=== PATIENT | female | born 1970 | race Caucasian/White ===

== ENCOUNTER 2024-12-02 10:40 | Outpatient (REF) | payer MEDICAID, SELFPAY ==
--- OUTSIDE RECORDS SUMMARY | 2024-12-02 10:00 | XMS_ITS | Encounter Summary ---
Author Organization [employer] Address [address] [facility] 7[address] [place] [address] Care Team Providers Care Staff Veterinarian Name Role Phone Levar Chambers MD Primary Care Provider [phone] Reason for Referral * Imaging (Routine) - Authorized Specialty Diagnoses / Procedures Referred By Contac t Referred To Contact Radiology Diagnoses Breast mass in female Procedures BI US Breast Complete Right Hillary Umana MD [address] [place] [address] Phone: tel: fax: [facility] Referral ID Status Reason Start Date Expiration Date V isits Requested Visits Authorized [id number] Authorized 12/02/2024 12/02/2025 1 1 * Imaging (Routine) - Authorized Specialty Diagnoses / Procedures Referred By Contac t Referred To Contact Radiology Diagnoses Breast mass in female Procedures BI Mammogram Diagnostic Tomosynthesis Bilateral Hillary Umana MD [address] [place] [address] Phone: tel: fax: [facility] Referral ID Status Reason Start Date Expiration Date V isits Requested Visits Authorized [id number] Authorized 12/02/2024 12/02/2025 1 1 Reason for Visit * Reason Comments Cervical Cancer Screening Encounter Details Date Type Department Care Team (Latest Contact Info) Description 12/02/2024 10:00 AM EDT Procedure Visit [facility] P[facility] [address] [place] [address] Hillary Umana MD [address] [place] [address] Exposure to sexually transmitted disease (STD) (Primary Dx); Screening for colon cancer; Breast mass in female; Cervical cancer screening Social History Tobacco Use Types Packs/Day Years Used Date Smoking Tobacco: Never Passive Smoke Exposure: Never Smokeless Tobacco: Never Depression Answer Date Recorded Patient Health Questionnaire-9 Score 6 11/27/2024 Patient Health Questionnaire-9 Score 6 11/27/2024 Last PHQ-9: Questionnaire Data Not on file 1 Depression Answer Date Recorded Patient Health Questionnaire-2 Score 2 11/27/2024 Comments No Sex and Gender Information Value Date Recorded Sex Assigned at Female 09/25/2024 1:09 PM EDT Legal Sex Female 1:06 PM EDT Gender Identity Female 09/25/2024 1:09 PM EDT Sexual Orientation Straight 09/25/2024 1: 09 PM EDT documented as of this encounter Last Filed Vital Signs Vital Sign Reading Time Taken Comments Blood Pressure 139/82 12/02/2024 10:14 AM EDT Pulse 80 12/02/2024 10:14 AM EDT Temperature 36.8 C (98.2 F) 12/02/2024 10:14 AM EDT Respiratory Rate 20 12/02/2024 10:14 AM EDT Oxygen Saturation 98% 12/02/2024 10:14 AM EDT Inhaled Oxygen Concentration - - Weight 103 kg (227 lb 9.6 oz) 12/02/2024 10:14 A M EDT Height 165.1 cm (5' 5 ) 12/02/2024 10:14 AM EDT Body Mass Index 37.87 12/02/2024 10:14 AM EDT documented in this encounter Progress Notes * Hillary Umana MD - 12/02/2024 10:00 AM EDT Subjective Patient ID: Audelia Stanford is a 53 y.o. female who presents for Cervical Cancer Screening. 53 y.o. female here for annual well woman preventive exam. LMP: No LMP recorded. Patient has had an ablation. Sexual activity: Social History Substance and Sexual Activity Sexual activity: Yes Partners: Male control/protection: Condom Male intention: BC method: Smoking hx: Tobacco Use: Low Risk (12/02/2024) Tobacco Smoking Tobacco Use: Never Smokeless Tobacco Use: Never Passive Exposure: Never Alcohol use hx: Social History Substance and Sexual Activity Alcohol use: None OBHx: # 1 - Date: None, Sex: None, Weight: None, GA: None, Type: None, Apgar1: None, Apgar5: None, Living: None, Comments: None # 2 - Date: None, Sex: None, Weight: None, GA: None, Type: None, Apgar1: None, Apgar5: None, Living: None, Comments: None IPV: Denies IPV Reviewed family hx Review of patient's family history indicates: Problem: Ovarian cancer Relation: Mother Name: Age of Onset: (Not Specified) Problem: Diabetes Relation: Father Name: Age of Onset: (Not Specified) Problem: Coronary artery disease Relation: Father Name: Age of Onset: (Not Specified) Problem: Asperger's syndrome Relation: Son Name: Age of Onset: (Not Specified) Problem: Autism spectrum disorder Relation: Son Name: Age of Onset: (Not Specified) Problem: Liver cancer Relation: Mother's Sister Name: Age of Onset: (Not Specified) Problem: Hypertension Relation: Mother's Sister Name: Age of Onset: (Not Specified) Problem: Lung cancer Relation: Mother's Sister Name: Age of Onset: (Not Specified) Problem: Solid Tumor Relation: Mother's Sister Name: Age of Onset: (Not Specified) Problem: Breast cancer Relation: Mother's Sister Name: Age of Onset: (Not Specified) Health Maintenance: No results found for: HMPAP , HMMAMMO , HMCOLON Review of Systems Objective BP 139/82 Pulse 80 Temp 98.2 ??F (36.8 ??C) (Oral) Resp 20 Ht 5' 5 (1.651 m) Wt 227 lb 9.6 oz (103 kg) SpO2 98% BMI 37.87 kg/m?? Physical Exam Vitals reviewed. Exam conducted with a business process associate present. HENT: Head: Normocephalic and atraumatic. Pulmonary: Effort: Pulmonary effort is normal. Chest: Chest wall: No deformity, tenderness or crepitus. Breasts: Breasts are symmetrical. Right: Normal. No inverted nipple, mass, nipple discharge, skin change or tenderness. Left: Normal. No inverted nipple, mass, nipple discharge, skin change or tenderness. Genitourinary: Urethra: No prolapse. Vagina: Normal. Cervix: Normal. Rectum: Normal. Musculoskeletal: Cervical back: Normal range of motion. Lymphadenopathy: Upper Body: Right upper body: No supraclavicular, axillary or pectoral adenopathy. Left upper body: No supraclavicular, axillary or pectoral adenopathy. Psychiatric: Mood and Affect: Mood is anxious. Speech: Speech is rapid and pressured and tangential. Assessment/Plan Problem List Items Addressed This Visit Breast mass in female Reports history of chronic right sided cysts, will send for imaging. Records pending. R breast 6 o'clock 2.5 cm x 1.0 cm, mobile, no skin changes Imaging order following CRICO guidelines Relevant Orders BI Mammogram Diagnostic Tomosynthesis Bilateral BI US Breast Complete Right Cervical cancer screening 53 y.o. here for cervical cancer screening. Will continue monitoring following ASCCP guidelines. Relevant Orders Pap Smear STI testing add on (NG, CT, Trich) HPV High Risk with Reflex to Subtypes Other Visit Diagnoses Exposure to sexually transmitted disease (STD) - Primary Relevant Orders Syphilis Screen Screening for colon cancer Relevant Orders Cologuard?? colon cancer screening documented in this encounter Miscellaneous Notes * Assessment & Plan Note - Hillary Umana MD - 12/02/2024 11:23 AM EDT Associated Problem(s): Breast mass in female Reports history of chronic right sided cysts, will send for imaging. Records pending. R breast 6 o'clock 2.5 cm x 1.0 cm, mobile, no skin changes Imaging order following CRICO guidelines * Assessment & Plan Note - Hillary Umana MD - 12/02/2024 11:22 AM EDT Associated Problem(s): Cervical cancer screening 53 y.o. here for cervical cancer screening. Will continue monitoring following ASCCP guidelines. documented in this encounter Plan of Treatment Scheduled Orders Name Type Priority Associated Diagnoses Order Schedule Cologuard colon cancer screening Lab Routine Screening for colon cancer Ordered: 12/02/2024 BI Mammogram Diagnostic Tomosynthesis Bilateral Imaging Routine Breast mass in female Expected: 12/02/2024, Expires: 02/01/2026 BI US Breast Complete Right Imaging Routine Breast mass in female Expected: 12/02/2024, Expires: 12/02/2025 Pap Smear Pathology and Cytology Routine Cervical cancer screening Ordered: 12/02/2024 STI testing add on (NG, CT, Trich) Pathology and Cytology Routine Cervical cancer screening Ordered: 12/02/2024 HPV High Risk with Reflex to Subtypes Lab Routine Cervical cancer screening Ordered: 12/02/2024 documented as of this encounter Procedures Procedure Name Priority Date/Time Associated Diagnosis Comments SYPHILIS SCREEN Routine 12/02/2024 11:15 AM EDT Exposure to sexually transmitted disease (STD) documented in this encounter Results * Syphilis Screen (12/02/2024 11:15 AM EDT) Syphilis Screen Nonreactive Nonreactive [facility] Blood 12/02/2024 11:1 5 AM EDT 12/02/2024 1:47 PM EDT us Hillary Umana MD LAB BLOOD ORDERABLES Final Re sult [facility] [address] [place] [phone] documented in this encounter Visit Diagnoses Diagnosis Exposure to sexually transmitted disease (STD)- Primary Contact with or exposure to venereal diseases Screening for colon cancer Special screening for malignant neoplasms, colon Breast mass in female Cervical cancer screening Screening for malignant neoplasm of the cervix documented in this encounter Additional Health Concerns Assessment Noted Time PHQ-9 Depression Total Score: 6 11/28/19 25 10:49 AM EDT documented as of this encounter Care Teams Staff Veterinarian Relationship Specialty Start Date End Date Levar Chambers MD [address] [place] [id number] PCP - General Internal Medicine 11/17/24 documented as of this encounter
--- OUTSIDE RECORDS SUMMARY | 2024-12-03 17:52 | XMS_ITS | Encounter Summary ---
Author Organization [employer] Address [address] [facility] 7t [place] [address] Care Team Providers Care Day Treatment Clinician/Art Therapist Name Role Phone Levar Chambers MD Primary Care Provider [phone] Reason for Referral * Imaging (Routine) - Authorized Specialty Diagnoses / Procedures Referred By Contac t Referred To Contact Radiology Diagnoses Transaminitis Procedures US Abdomen Comp w elastography Levar Chambers MD [address] [place] [address] Phone: tel: fax: [facility] Referral ID Status Reason Start Date Expiration Date V isits Requested Visits Authorized [id number] Authorized 12/03/2024 12/03/2025 1 1 Encounter Details Date Type Department Care Team ([facility] st Contact Info) Description 12/03/2024 Orders Only [facility] CH[facility] MED & PEDS [address] [place] [address] Levar Chambers MD [address] [place] [address] Transaminitis (Primary Dx) Social History Tobacco Use Types Packs/Day Years [...] as of this encounter Plan of Treatment Scheduled Orders Name Type Priority Associated Diagnoses Orde r Schedule Hepatitis B Surface Antibody, Qualitative Lab Routine Transaminitis Expected: 12/03/2024 (Approximate), Expires: 12/03/2025 US Abdomen Comp w elastography Imaging Routine Transaminitis Expected: 12/03/2024, Expires: 12/03/2025 Smooth Muscle Antibody with Reflex to Titer Lab Routine Transaminitis Expected: 12/03/2024 (Approximate), Expires: 12/03/2025 Immunoglobulins, Quantitative, IgA, IgG, IgM Lab Routine Transaminitis Expected: 12/03/2024 (Approximate), Expires: 12/03/2025 Prothrombin Time-INR Lab Routine Transaminitis Expected: 12/03/2024, Expires: 12/03/2025 Ferritin Lab Routine Transaminitis Expected: 12/03/2024, Expires: 12/03/2025 Iron And Total Iron Binding Capacity Lab Routine Transaminitis Expected: 12/03/2024, Expires: 12/03/2025 Alpha 1 Antitrypsin Lab Routine Transaminitis Expected: 12/03/2024 (Approximate), Expires: 12/03/2025 documented as of this encounter Visit Diagnoses Diagnosis Transaminitis- Primary Nonspecific elevation of levels of transaminase or lactic acid dehydrogenase (LDH) documented in this encounter Additional Health Concerns Assessment Noted Time PHQ-9 Depression Total Score: 6 11/28/19 10:49 AM EDT documented as of this encounter Care Teams Day Treatment Clinician/Art Therapist Relationship Specialty Start Date End Date Levar Chambers MD [address] [place] [phone] PCP - General Internal Medicine 11/17/24 documented as of this encounter
--- OUTSIDE RECORDS SUMMARY | 2024-12-03 17:52 | XMS_ITS | Clinical Summary ---
Author Organization [facility] Address [address] [place] [phone] Phone Care Team Providers Care Chisel Mortiser Operator Name Role Phone Erick Amaro MD Primary Care Provider [phone]- [phone] Allergies No known active allergies Medications No [...] [place] [address] [place] Member Subscriber Plan / Payer (Ef fective 2023-) Name:Alice Stanfordna Relation to Subscriber:Self Name:Audelia Stanford Payer ID:Not on file Group ID:Not on file Type:Medicaid Address: [address] [facility] [place], [place] [address] [place], [place] [address] [place] Care Teams Chisel Mortiser Operator Relationship Specialty Start Date End Date Erick Amaro MD PCP - General Family Medicine 06/04/24 Additional Source Comments The information contained in this document represents components of the legal health record. It is not the complete legal health record.[facility]
--- OUTSIDE RECORDS SUMMARY | 2024-12-03 17:52 | XMS_ITS | Clinical Summary ---
Author Organization [employer] Address [address] [place] [address] Care Team Providers Care Slab Stripper Name Role Phone Levar Chambers MD Primary Care Provider [phone] [phone] Allergies No known active allergies Medications * [...] organization. Date Type Department Care Team Description 12/03/2024 Results Follow-Up [facility] MED & PEDS [address] [place] [address] Samantha Quan RN Hepatitis Panel, General, HIV-1/2 Antigen and Antibodies, Fourth Generation, with Reflexes, Urinalysis w/reflex microscopic, Additional followed-up results: 4 12/03/2024 Orders Only [facility] MED [facility] [address] [place] [address] Levar Chambers MD Transaminitis (Primary Dx) 12/02/2024 10:00 AM EDT Procedure Visit [facility] [address] [place] [address] Hillary Umana MD Exposure to sexually transmitted disease (STD) (Primary Dx); Screening for colon cancer; Breast mass in female; Cervical cancer screening 12/02/2024 Travel 11/21/2024 Population Health Risk Score [facility] () [address] [phone] Provider, Population Health Generic 11/14/2024 1:30 PM EDT Office Visit [facility] [address] [place] [address] Levar Chambers MD Chronic pain of right knee (Primary Dx); Injury of right knee, sequela; Blurry vision, bilateral; Dietary counseling; Exercise counseling; Class 2 obesity due to excess calories without serious comorbidity with body mass index (BMI) of 38.0 to 38.9 in adult; PTSD (post-traumatic stress disorder); Screen for STD (sexually transmitted disease); Encounter for immunization 11/14/2024 Travel 11/10/2024 Telephone [facility] MED[facility]INE [address] [place] [phone] Levar Chambers MD No Show 11/04/2024 Patient Outreach [facility] [address] [place] [phone] Ryan Palmer MD Pre-visit Planning (GAOH screening unable to complete. ) 11/03/[address] [address] Fernanda Pack MD Call Back Request 09/25/2024 2:40 PM EDT Office Visit [facility] [address] [place] [phone] Fernanda Pack MD Chronic pain of right [...] FIT DNA/Cologuard 1971 FIT 1971 FOBT 1971 SDOH Screening 1971 Sigmoidoscopy 1971 Family Planning (PISQ) 12/15/1986 DTaP/Tdap/Td Vaccines (1 - Tdap) 12/15/1990 Hepatitis [...] 11/27/2025 11/27/2024, 11/27/2024 Tobacco Screening 12/02/2025 12/02/2024 Lipid Panel 12/02/2029 12/02/2024 RSV Patients and Patients Aged 60 years or older (1 - 1-dose 75+ series) 12/15/2046 Influenza Vaccine Completed 11/14/2024 HIV Screening Completed 12/02/2024 Hepatitis C Screening Completed 12/02/2024 HIB Vaccines Aged Out No longer eligi [...] Procedure Name Priority Date/Time Associated Diagnosis Comments URINALYSIS WITH REFLEX MICROSCOPIC Routine 12/02/2024 11:29 AM EDT Screen for STD (sexually transmitted disease) SYPHILIS SCREEN Routine 12/02/2024 11:15 AM EDT Exposure to sexually transmitted disease (STD) TSH W/REFLEX TO FT4 Routine 12/02/2024 1 1:15 AM EDT Class 2 obesity due to excess calories without serious comorbidity with body mass index (BMI) of 38.0 to 38.9 in adult LIPID PANEL, STANDARD Routine 12/02/2024 11:15 AM EDT Class 2 obesity due to excess calories without serious comorbidity with body mass index (BMI) of 38.0 to 38.9 in adult COMPREHENSIVE METABOLIC PANEL Routine 12/02/2024 11:15 AM EDT Class 2 obesity due to excess calories without serious comorbidity with body mass index (BMI) of 38.0 to 38.9 in adult CBC WITH AUTO DIFFERENTIAL Routine 12/02/2024 11:15 AM EDT Class 2 obesity due to excess calories without serious comorbidity with body mass index (BMI) of 38.0 to 38.9 in adult HIV 1/2 ANTIGEN/ANTIBODY, FOURTH GENERATION W/RFL Routine 12/02/2024 11:15 AM EDT Screen for STD (sexually transmitted disease) HEPATITIS PANEL, GENERAL Routine 12/02/2024 11:15 AM EDT Screen for STD (sexually transmitted disease) AMB REFERRAL TO ORTHOPAEDIC SURGERY Routine 11/07/2024 Chronic pain of right knee Injury of right knee, sequela from Last 3 Months Results * Urinalysis w/reflex microscopic (12/02/2024 11:29 AM EDT) Color Urine Yellow [facility] Appearance Urine Clear [facility] PH 7.5 5.0 - 9.0 [facility] Glucose Urine UA Negative Negative mg/dL [facility] Urine Blood Negative Negative [facility] Specific [place] - Urine <=1.005 1.005 - 1.025 [facility] Urine Protein Negative Neg-Trace mg/dL [facility] Urine Ketones Negative Negative mg/dL [facility] Nitrite Urine Negative Negative [facility] Leukocyte Esterase Urine Negative Negative [facility] Urine (Urine, Random) 12/02/2024 11:29 AM EDT 12/02/2024 1:54 PM EDT Narrative [facility] - 12/02/2024 2:00 PM EDT [id number], Clean Catch us Levar Chambers MD LAB URINE ORDERABLES Final Result Performing Organization Address [facility]/ZIP Co de Phone Number [facility] [address] [place] [phone] * Syphilis Screen (12/02/2024 11:15 AM EDT) Syphilis Screen Nonreactive Nonreactive [facility] Blood 12/02/2024 11:1 5 AM EDT 12/02/2024 1:47 PM EDT us Hillary Umana MD LAB BLOOD ORDERABLES Final Re sult Performing Organization Address [facility] Co de Phone Number [facility] [address] [place] [phone] * TSH with Reflex to Free T4 (12/02/2024 11:15 AM EDT) TSH reflex Free T4 1.61 0.32 - 4.0 uIU/mL [facility] Blood Venous blood specimen / Unknown 12/02/2024 11:15 AM EDT 12/02/2024 1:47 PM EDT us Leavr Chambers MD LAB BLOOD ORDERABLES Final Result Performing Organization Address [facility] Co de Phone Number [facility] [address] [place] [phone] * Hepatitis Panel, General (12/02/2024 11:15 AM EDT) Hepatitis A IgM Nonreactive Nonreactive [facility] Comment:IgM antibodies to SHAH V not detected; does not exclude earlyacute or recovered HAV infection. ~Hepatitis B Surface Antibody NONREACTIVE Nonreactive [facility] Comment:Nonreactive: < 8.00 mIU/mL Hepatitis B Core Antibody Nonreactive Nonreactive [facility] Hepatitis C Antibody Nonreactive Nonreactive [facility] Comment:Antibodies to HCV no t detected; does not exclude early acuteHCV infection. Hepatitis B Surface Ag Negative Negative [facility] Blood Venous blood specimen / Unknown 12/02/2024 11:15 AM EDT 12/02/2024 1:47 PM EDT us Levar Chambers MD LAB BLOOD ORDERABLES Final Result [facility] [address] [place] [phone] * (ABNORMAL) CBC auto differential (12/02/2024 11:15 AM EDT) Pathologist [facility] [place] [facility] White Blood Count 6.1 4.8 - 10.8 X10*3/uL [facility] Red Blood Count 4.26 4.20 - 5.50 X10*6/uL [facility] Hemoglobin 12.4 12.0 - 16.0 g/dl [facility] Hematocrit 37.7 37.0 - 47.0 % [facility] Mean Corpuscular Volume 88.5 80.0 - 98.0 fL [facility] Mean Corpuscular Hemoglobin 29.1 27.0 - 33.0 pg [facility] Mean Corpuscular HGB Conc 32.9 31.0 - 35.0 g/dl [facility] Red Cell Distribution Width 13.1 11.0 - 16.0 % [facility] Platelet Count 304 160 - 400 X10*3/uL [facility] Mean Platelet Volume 10.6 9.4 - 12.3 fL [facility] Neutrophils Percent Auto 53.2 45 - 73 % [facility] Imm Gran Pct Auto 0.2 0.0 - 0.4 % [facility] Lymphocytes Percent Auto 31.5 20 - 40 % [facility] Monocytes Percent Auto 8.6 2 - 11 % [facility] Eosinophils Percent Auto 4.8(H) 0 - 4 % [facility] Basophils Percent Auto 1.7 0 - 2 % [facility] NRBC Pct Auto 0.0 0.0 - 0.2 /100WBC [facility] Neutrophils Absolute Auto 3.2 2.0 - 8.3 x10*3/uL [facility] Imm Gran Abs Auto 0.01 0.00 - 0.03 X10*3/uL [facility] Lymphocytes Absolute Auto 1.9 1.2 - 4.9 X10*3/uL [facility] Monocytes Absolute Auto 0.5 0.1 - 1.2 X10*3/uL [facility] Eosinophils Absolute Auto 0.3 0.0 - 0.4 X10*3/uL [facility] Basophils Absolute Auto 0.1 0.0 - 0.2 X10*3/uL [facility] NRBC Abs Auto 0.000 0.0 - 0.012 X10*3/uL [facility] Blood Venous blood specimen / Unknown 12/02/2024 11:15 AM EDT 12/02/2024 1:55 PM EDT Levar Chambers MD LAB BLOOD ORDERABLES Final Result [facility] [address] [place] [phone] * HIV-1/2 Antigen and Antibodies, Fourth Generation, with Reflexes (12/02/2024 11:15 AM EDT) HIV AB/AG Nonreactive Nonreactive [facility] Comment:HIV-1 p24 Ag and/or HIV-1/HIV-2 Ab not detected.A test result that is nonreactive does not exclude thepossibility of exposure to or infection with HIV-1 and/orHIV-2. Nonreactive results in this assay for individualswith prior exposure to HIV-1 and/or HIV-2 may be due toantigen and antibody levels that are below the limit ofdetection of this assay.The [employer] HIV Ag/Ab Combo assay result andsupplemental assay results should be interpreted inconjunction with the patient's clinical presentation,history and other laboratory results. If the results areinconsistent with clinical evidence, additional testing issuggested to confirm the result. Blood Venous blood specimen / Unknown 12/02/2024 11:15 AM EDT 12/02/2024 1:47 PM EDT us Levar Chambers MD LAB BLOOD ORDERABLES Final Result [facility] [address] [place] [phone] [phone] * Lipid Panel, Standard (12/02/2024 11:15 AM EDT) Triglycerides 93 <150 mg/dL [facility] Comment:Desirable Triglyceri de: less than 150 mg/dLBorderline High Triglyceride 150-199 mg/dLHigh Triglyceride: 200-499 mg/dLVery High Triglyceride: greater than or equal to 5OO mg/dL Cholesterol 162 <200 mg/dL [facility] Comment:Desirable Cholestero l: less than 200 mg/dLBorderline High Cholesterol: 200-239 mg/dLHigh Cholesterol: greater than 239 mg/dL LDL Cholesterol Calculated 91 <100 mg/dL [facility] Comment:Desirable LDL: less than 100 mg/dLNear Optimal/Above Optimal LDL: 110- 129 mg/dLBorderline High LDL: 130-159 mg/dLHigh LDL: 160-189 mg/dLVery High LDL: greater than or equal to 190 mg/dL HDL Cholesterol 53 >40 mg/dL [facility] Comment:Desirable HDL: great er than 40 mg/dL Note: This HDL assay may give artificially low results in patients with liver disease. Blood Venous blood specimen / Unknown 12/02/2024 11:15 AM EDT 12/02/2024 1:47 PM EDT us Levar Chambers MD LAB BLOOD ORDERABLES Final Result [facility] [address] [place] [phone] * (ABNORMAL) Comprehensive Metabolic Panel (12/02/2024 11:15 AM EDT) Sodium 141 135 - 145 mmol/L [facility] Potassium 3.8 3.3 - 5.1 mmol/L [facility] Chloride 108 96 - 108 mmol/L [facility] Carbon Dioxide 26 22 - 29 mmol/L [facility] Anion Gap 11(L) 12 - 20 [facility] Urea Nitrogen (BUN) 11 9 - 16 mg/dL [facility] Creatinine, Serum 0.61 0.5 - 1.4 mg/dL [facility] Estimated Glomerular Filt Rate >60 [facility] Comment:Chronic Kidney Disea se: Estimated GFR < 60 mL/min/1.38f6Pwolxe Kidney Disease: Estimated GFR < 15 mL/min/1.73m2 Glucose 112 60 - 115 mg/dL [facility] Calcium 9.4 8.4 - 10.2 mg/dL [facility] Bilirubin, Total 0.5 0.0 - 1.0 mg/dL [facility] Aspartate Amino Transferase 30 5 - 31 U/L [facility] Alanine Aminotransferase 32(H) 0 - 31 U/L [facility] Total Protein 7.2 6.5 - 8.0 g/dL [facility] Albumin Level 4.5 3.5 - 5.0 g/dL [facility] Alkaline Phosphatase 75 39 - 117 U/L [facility] Blood Venous blood specimen / Unknown 12/02/2024 11:15 AM EDT 12/02/2024 1:47 PM EDT us Levar Chambers MD LAB BLOOD ORDERABLES Final Result [facility] [address] [place] [phone] [phone] * Referral to Orthopaedic Surgery (11/07/2024) us Fernanda Pack MD OUTPATIENT REFERRAL ORDERA BLES Final Result from Last 3 Months Insurance [employer] Care Teams Slab Stripper Relationship Specialty Start Date End Date Levar Chambers MD [address] [place] [phone] PCP - General Internal Medicine 11/17/24
--- OUTSIDE RECORDS SUMMARY | 2024-12-03 17:52 | XMS_ITS | Encounter Summary ---
Author Organization [employer] Address [address] [facility] 7t [place] [address] Care Team Providers Care Medical Representative Name Role Phone Levar Chambers MD Primary Care Provider [phone] [phone] Encounter Details Date Type Department Care Team [...] documented as of this encounter Care Teams Medical Representative Relationship Specialty Start Date End Date Levar Chambers MD [address] [place] [address] PCP - General Internal Medicine 11/17/24 documented as of this encounter
--- OUTSIDE RECORDS SUMMARY | 2024-12-03 17:52 | XMS_ITS | Encounter Summary ---
Author Organization [employer] Address [address] [facility] 7t [place] [address] Care Team Providers Care Ambulatory Care Nurse Name Role Phone Levar Chambers MD Primary Care Provider [phone] [phone] Reason for Visit * Reason Onset Date Comments Results 12/03/2024 Encounter Details Date Type Department Care Team ([facility] st Contact Info) Description 12/03/2024 Results Follow-Up [facility] MED & PEDS [address] [place] [address] Samantha Quan RN Hepatitis Panel, General, HIV-1/2 Antigen and Antibodies, Fourth Generation, with Reflexes, Urinalysis w/reflex microscopic, Additional followed-up results: 4 Social History Tobacco Use Types Packs/Day Years [...] PM EDT documented as of this encounter Miscellaneous Notes * Telephone Encounter - Samantha Quan RN - 12/03/2024 2:53 PM EDT TC placed to the pt and LVM to call back the office in regard to result message below from PCP ----- Message from Levar Chambers MD sent at 12/03/2024 2:13 PM EDT ----- Please call. Labs reviewed; NORMAL except for mild elevation of ALT. A work up was ordered. Pt can come to have the test done KAROL. Her hep B surf Ab is also neg, she needs her Hep B vaccine as well as her pneumonia, shingle, Tdap vaccines. ----- Message ----- From: Interface, Lab Results In Sent: 12/02/2024 2:01 PM EDT To: Levar Chambers MD documented in this encounter Plan of Treatment Not on file documented as of this encounter Visit Diagnoses Not on filedocumented in this encounter Additional Health Concerns Assessment Noted Time PHQ-9 Depression Total Score: 6 11/28/19 10:49 AM EDT documented as of this encounter Care Teams Ambulatory Care Nurse Relationship Specialty Start Date End Date Levar Chambers MD [address] [place] [phone] PCP - General Internal Medicine 11/17/24 documented as of this encounter
[2024-12-04 21:37] LABS: C. trachomatis RNA TMA NOT DETECTED (NOT DETECTED); N. gonorrhoeae RNA TMA NOT DETECTED (NOT DETECTED); Trichomonas (NAAT) NOT DETECTED (NOT DETECTED)
== END 2024-12-02 10:41 | disposition home or self-care (01) ==
LOC: HO.LNP 10:40
PROVIDERS: Visit Provider Family Medicine
DX: Z11.51 Encounter for screening for human papillomavirus (HPV) (principal); Z12.4 Encounter for screening for malignant neoplasm of cervix; Z20.2 Contact with and (suspected) exposure to infections with a predominantly sexual mode of transmission
CPT/HCPCS: 87491; 87591; 87626; 87661; 88175

== ENCOUNTER 2024-12-02 11:08 | Outpatient (REF) | payer MEDICAID, SELFPAY ==
--- OUTSIDE RECORDS SUMMARY | 2024-12-02 10:00 | XMS_ITS | Encounter Summary ---
Author Organization [employer] Address [address] [facility] 7t [place] [address] Care Team Providers Care Ict Account Manager Name Role Phone Levar Chambers MD Primary Care Provider [phone] Reason for Referral * Imaging (Routine) - Authorized Specialty Diagnoses / Procedures Referred By Contac t Referred To Contact Radiology Diagnoses Breast mass in female Procedures BI US Breast Complete Right Hillary Umana MD [address] [place] [address] Phone: tel: fax: [facility] Referral ID Status Reason Start Date Expiration Date V isits Requested Visits Authorized [id number] Authorized 12/02/2024 12/02/2025 1 1 * Imaging (Routine) - Authorized Specialty Diagnoses / Procedures Referred By Contac t Referred To Contact Radiology Diagnoses Breast mass in female Procedures BI Mammogram Diagnostic Tomosynthesis Bilateral Hillary Umana MD [address] [place] [address] Phone: tel: fax: [facility] Referral ID Status Reason Start Date Expiration Date V isits Requested Visits Authorized [id number] Authorized 12/02/2024 12/02/2025 1 1 Reason for Visit * Reason Comments Cervical Cancer Screening Encounter Details Date Type Department Care Team (Latest Contact Info) Description 12/02/2024 10:00 AM EDT Procedure Visit [facility] MED & PEDS [address] [place] [address] Hillary Umana MD [address] [place] [address] Exposure to sexually transmitted disease (STD) (Primary [...] Exam Vitals reviewed. Exam conducted with a macaroni maker present. HENT: Head: Normocephalic and atraumatic. Pulmonary: [...] Scheduled Orders Name Type Priority Associated Diagnoses Orde r Schedule Syphilis Screen Lab Routine Exposure to sexually transmitted disease (STD) Expected: 12/02/2024, Expires: 12/02/2025 Cologuard colon cancer screening Lab Routine Screening [...] Ordered: 12/02/2024 documented as of this encounter Visit Diagnoses Diagnosis Exposure to sexually transmitted disease (STD)- Primary Contact with or exposure to venereal diseases Screening for colon cancer Special screening for malignant neoplasms, colon Breast mass in female Cervical cancer screening Screening for malignant neoplasm of the cervix documented in this encounter Additional Health Concerns Assessment Noted Time PHQ-9 Depression Total Score: 6 11/28/19 10:49 AM EDT documented as of this encounter Care Teams Ict Account Manager Relationship Specialty Start Date End Date Levar Chambers MD [address] [place] [id number] PCP - General Internal Medicine 11/17/24 documented as of this encounter
--- OUTSIDE RECORDS SUMMARY | 2024-12-02 13:30 | XMS_ITS | Clinical Summary ---
Author Organization [facility] Address [address] [place] [phone] Phone Care Team Providers Care Contract Engineer Name Role Phone Erick Amaro MD Primary Care Provider [phone] Allergies No known active allergies Medications No known medications Social History Tobacco Use Types Packs/Day Years Used Date Smoking Tobacco: Never Assessed Education Answer Date Recorded Are you interested in more education? Not on astrid e 06/05/2024 Are you concerned about learning? Not on file 06/05/2024 No 06/05/2024 No 06/05/2024 Food Answer Date Recorded Within the past 6 months we worried whether our food would run out before we got money to buy more. Never True 06/05/2024 Within the past 6 months the food we bought just didn't last and we didn't have enough money to get more. Never True Residential Stability Answer Date Recor ded What is your housing situation today? I have sushila sing 06/05/2024 How many times have you move d in the past 12 months? Zero (I did not move) 06/05/2024 Paying for Meds Answer Date Recorded Do you have trouble paying for medicines? No 06/05/2024 Paying Utility Bills Answer Date Record ed Do you have trouble paying your heating or elect ricity bill? No 06/05/2024 Transportation Answer Date Recorded Has the lack of transportati on kept you from medical appointments or from getting medications? No 06/05/2024 Digital Access Answer Date Recorded No 06/05/2024 Yes 06/05/2024 Do you have reliable internet access at home? Ye s 06/05/2024 Do you have a device (e.g., phone, tablet, computer) with a working camera? Yes 06/05/2024 Intimate Partner Violence Answer Date R ecorded Are you denied basic needs s uch as food, clothing, or medical care? No 06/04/2024 In the past 12 months have y ou been in a relationship with a person who hurts, threatens, or tries to control you? No 06/04/2024 Are you denied basic needs s uch as food, clothing, or medical care? No 06/04/2024 In the past 12 months have y ou been in a relationship with a person who hurts, threatens, or tries to control you? No 06/04/2024 Comments Unknown Sex and Gender Information Value Date Recorded Sex Assigned at Female 06/04/2024 9:17 PM EDT Legal Sex Female 9:32 PM EDT Gender Identity Female 06/04/2024 9:17 PM EDT Sexual Orientation Straight 06/04/2024 9: 17 PM EDT Last Filed Vital Signs Vital Sign Reading Time Taken Comments Blood Pressure 137/81 06/05/2024 1:22 AM EDT Pulse 69 06/05/2024 1:22 AM EDT Temperature 36.7 C (98.1 F) 06/05/2024 1:22 AM EDT Respiratory Rate 18 06/05/2024 1:22 AM EDT Oxygen Saturation 97% 06/05/2024 1:22 AM EDT Inhaled Oxygen Concentration - - Weight 90.7 kg (200 lb) 06/04/2024 8:56 PM EDT Height 165.1 cm (5' 5 ) 06/04/2024 8:56 PM EDT Body Mass Index 33.28 06/04/2024 8:56 PM EDT Plan of Treatment Health Maintenance Due Date Last Done Comments Adult Td,Tdap Booster 1971 LIPID PANEL 1971 DEPRESSION SCREENING 1983 SMOKING Hx and SMOKELESS TOB ACCO SCREENING 12/15/1984 HEPATITIS C SCREENING 12/15/1989 HIV ONE-TIME SCREENING (18-6 5 YEARS) 12/15/1989 PAP SMEAR 12/15/1992 MAMMOGRAM 2011 COLOGUARD 12/15/2016 COLONOSCOPY 12/15/2016 COLORECTAL CANCER SCREENING 12/15/2016 FIT TEST 12/15/2016 FOBT 12/15/2016 SIGMOIDOSCOPY 12/15/2016 VIRTUAL COLONOSCOPY 12/15/2016 PNEUMOCOCCAL VACCINES (50+ y ears) (1 of 1 - PCV) 12/15/2021 ZOSTER VACCINES (1 of 2) 12/15/2021 INFLUENZA VACCINE (#1) 2024 COVID-19 VACCINE (1 - 2024-2 6 season) 2024 SCREENING FOR DIABETES 06/06/2027 06/05/2024 RSV VACCINE (1 - 1-dose 75+ series) 12/15/2046 HEPATITIS A VACCINES Aged Out No long er eligible based on patient's age to complete this topic HIB VACCINES Aged Out No longer eligi ble based on patient's age to complete this topic MENINGOCOCCAL VACCINES (ACWY) Aged Out No longer eligible based on patient's age to complete this topic MENINGOCOCCAL VACCINES (B) Aged Out N o longer eligible based on patient's age to complete this topic Medical Devices [place] [address] [place] Member Subscriber Plan / Payer (Ef fective 2023-) Name:Alice Stanfordna Relation to Subscriber:Self Name:Audelia Stanford Payer ID:Not on file Group ID:Not on file Type:Medicaid Address: [address] [facility] [place], [place] [address] [place], [place] [address] [place] Care Teams Contract Engineer Relationship Specialty Start Date End Date Erick Amaro MD PCP - General Family Medicine 06/04/24 Additional Source Comments The information contained in this document represents components of the legal health record. It is not the complete legal health record.[facility]
--- OUTSIDE RECORDS SUMMARY | 2024-12-02 13:30 | XMS_ITS | Clinical Summary ---
Author Organization [employer] Address [address] [place] [address] Care Team Providers Care Pasteurizing Machine Operator Name Role Phone Levar Chambers MD Primary Care Provider [phone] Allergies No known active allergies Medications * This document contains information received from the source organization and may not represent a complete record from that organization. Ascorbic Acid (vitamin C) 1000 MG tablet Take 1,000 mg by mouth Once per day. Active Multiple Vitamins-Mineral s (VITAMINS TO GO WOMEN PO) Take by mouth. Active Active Problems Problem Noted Date Diagnosed Date Breast mass in female 12/02/2024 Assessment & Plan (12/02/2024 11:23 AM EDT): Reports history of chronic right sided cysts, will send for imaging. Records pending. R breast 6 o'clock 2.5 cm x 1.0 cm, mobile, no skin changes Imaging order following [facility] guidelines Cervical cancer screening 12/02/2024 Assessment & Plan (12/02/2024 11:22 AM EDT): 53 y.o. here for cervical cancer screening. Will continue monitoring following ASCCP guidelines. ASHANTI (generalized anxiety disorder) 11/27/2024 Encounters * This document contains information received from the source organization and may not represent a complete record from that organization. Date Type Department Care Team Description 12/02/2024 10:00 AM EDT Procedure Visit [facility]S [address] [place] [address] Hillary Umana MD Exposure to sexually transmitted disease (STD) (Primary Dx); Screening for colon cancer; Breast mass in female; Cervical cancer screening 12/02/2024 Travel 11/21/2024 Population Health Risk Score Community [facility] () Department [address] [place] [phone] Provider, Population Health Generic 11/14/2024 1:30 PM EDT Office Visit [facility] [address] [place] [address] Levar Chambers MD Chronic pain of right knee (Primary Dx); Injury of right knee, sequela; Blurry vision, bilateral; Dietary counseling; Exercise counseling; Class 2 obesity due to excess calories without serious comorbidity with body mass index (BMI) of 38.0 to 38.9 in adult; PTSD (post-traumatic stress disorder); Screen for STD (sexually transmitted disease); Encounter for immunization 11/14/2024 Travel 11/10/2024 Telephone [facility] MEDICINE [address] [place] [phone] Levar Chambers MD No Show 11/04/2024 Patient Outreach [facility] [address] [place] [address] Ryan Palmer MD Pre-visit Planning (SDOH screening unable to complete. ) 11/03/2024 Telephone [facility] MEDICINE [address] [place] [phone] Fernanda Pack MD Call Back Request 09/25/2024 2:40 PM EDT Office Visit [facility] WALK-IN CENTER [address] [place] [phone] Fernanda Pack MD Chronic pain of right knee (Primary Dx); Injury of right knee, sequela 09/25/2024 Travel from Last 3 Months Immunizations Immunization Administration Dates Next Due Influenza, seasonal, injectable, preservative fr ee 11/14/2024 Family History Medical History Relation Name Comments Coronary artery disease Father Diabetes Father Ovarian cancer Mother Breast cancer Mother's Sister Hypertension Mother's Sister Liver cancer Mother's Sister Lung cancer Mother's Sister Solid Tumor Mother's Sister Asperger's syndrome Son Autism spectrum disorder Son Relation Name Status Comments Father Father's Brother Alive Mother Mother's Sister Unknown Son Social History Tobacco Use Types Packs/Day Years Used Date Smoking Tobacco: Never Passive Smoke Exposure: Never Smokeless Tobacco: Never Tobacco Cessation:Counseling Given: No Depression Answer Date Recorded Patient Health Questionnaire-9 [...] Orientation Straight 09/25/2024 1: 09 PM EDT Last Filed Vital Signs Vital [...] Mass Index 37.87 12/02/2024 10:14 AM EDT Plan of Treatment Health Maintenance Due Date Last Done Comments CT Colonography 1971 Colonoscopy 1971 Colorectal Cancer Screening 1971 FIT DNA/Cologuard 1971 FIT 1971 FOBT 1971 HIV Screening 1971 Lipid Panel 1971 SDOH Screening 1971 Sigmoidoscopy 1971 Family Planning (PISQ) 12/15/1986 Hepatitis C Screening 12/15/1989 DTaP/Tdap/Td Vaccines (1 - Tdap) 12/15/1990 Hepatitis B Vaccines (1 of 3 - 19+ 3-dose series) 12/15/1990 Pap Smear 12/15/1992 Cervical Cancer Screening 12/15/2001 HPV/Cotest 12/15/2001 Mammogram 2011 Pneumococcal Vaccine: 50+ Years (1 of 1 - PCV) 12/15/2021 Zoster Vaccines (1 of 2) 12/15/2021 Alcohol/Substance Use Screening 11/14/2025 11/14/2024 COVID-19 Vaccine (1 - 2023-2 5 season) 2025 Postponed from 10/20 (Patient Refused) Disability Screening 11/14/2025 11/14/2024 Depression Screening 11/27/2025 11/27/2024, 11/27/2024 Tobacco Screening 12/02/2025 12/02/2024 RSV Patients and Patients Aged 60 years or older (1 - 1-dose 75+ series) 12/15/2046 Influenza Vaccine Completed 11/14/2024 HIB Vaccines Aged Out No longer eligi ble based on patient's age to complete this topic HPV Vaccines Aged Out No longer eligi ble based on patient's age to complete this topic Hepatitis A Vaccines Aged Out No long er eligible based on patient's age to complete this topic IPV Vaccines Aged Out No longer eligi ble based on patient's age to complete this topic Meningococcal B Vaccine Aged Out No l onger eligible based on patient's age to complete this topic Meningococcal Vaccine Aged Out No rene yamilet eligible based on patient's age to complete this topic RSV under 20 months Aged Out No longe r eligible based on patient's age to complete this topic Rotavirus Vaccines Aged Out No longer eligible based on patient's age to complete this topic Procedures Procedure Name Priority Date/Time Associated Diagnosis Comments AMB REFERRAL TO ORTHOPAEDIC SURGERY Routine 11/07/2024 Chronic pain of right knee Injury of right knee, sequela from Last 3 Months Results * Referral to Orthopaedic Surgery (11/07/2024) Fernanda Pack MD OUTPATIENT REFERRAL ORDERA BLES Final Result from Last 3 Months [facility] Care Teams Pasteurizing Machine Operator Relationship Specialty Start Date End Date Levar Chambers MD [address] [place] [phone] PCP - General Internal Medicine 11/17/24
--- OUTSIDE RECORDS SUMMARY | 2024-12-02 13:30 | XMS_ITS | Encounter Summary ---
Author Organization [employer] Address [address] [facility] [address] [place] [address] Care Team Providers Care Retail Marketing Manager Name Role Phone Levar Chambers MD Primary Care Provider [phone] Encounter Details Date Type Department Care Team (Latest Contact Info) Description 12/02/2024 Travel Social History Tobacco Use Types Packs/Day Years [...] PM EDT documented as of this encounter Plan of Treatment Not on file documented as of this encounter Visit Diagnoses Not on filedocumented in this encounter Additional Health Concerns Assessment Noted Time PHQ-9 Depression Total Score: 6 11/28/19 10:49 AM EDT documented as of this encounter Care Teams Retail Marketing Manager Relationship Specialty Start Date End Date Levar Chambers MD [address] [place] [address] PCP - General Internal Medicine 11/17/24 documented as of this encounter
[2024-12-02 13:58] LABS: MANUAL DIFF FLAG NO
[2024-12-02 13:59] LABS: Appearance Urine Clear; Glucose Urine UA Negative (Negative); PH 7.5 (5.0-9.0); Specific Gravity - Urine <= 1.005 (1.005-1.025)
[2024-12-02 14:00] LABS: Hematocrit 37.7 % (37.0-47.0); Hemoglobin 12.4 g/dl (12.0-16.0); Imm Gran Abs Auto 0.01 X10*3/uL (0.00-0.03); Imm Gran Pct Auto 0.2 % (0.0-0.4); Lymphocytes Absolute Auto 1.9 X10*3/uL (1.2-4.9); Mean Corpuscular HGB Conc 32.9 g/dl (31.0-35.0); Mean Corpuscular Hemoglobin 29.1 pg (27.0-33.0); Mean Corpuscular Volume 88.5 fL (80.0-98.0); NRBC Abs Auto 0.000 X10*3/uL (0.0-0.012); NRBC Pct Auto 0.0 /100WBC (0.0-0.2); Platelet Count 304 X10*3/uL (160-400); Red Blood Count 4.26 X10*6/uL (4.20-5.50); White Blood Count 6.1 X10*3/uL (4.8-10.8)
[2024-12-02 14:38] LABS: Alanine Aminotransferase 32 U/L (0-31); Albumin Level 4.5 g/dL (3.5-5.0); Alkaline Phosphatase 75 U/L (39-117); Anion Gap 11 (12-20); Aspartate Amino Transferase 30 U/L (5-31); Blood Urea Nitrogen 11 mg/dL (9-16); Calcium 9.4 mg/dL (8.4-10.2); Carbon Dioxide 26 mmol/L (22-29); Chloride 108 mmol/L (96-108); Cholesterol 162 mg/dL (<200); Estimated Glomerular Filt Rate > 60; HDL Cholesterol 53 mg/dL (>40); Potassium 3.8 mmol/L (3.3-5.1); Sodium 141 mmol/L (135-145); Total Protein 7.2 g/dL (6.5-8.0); Triglycerides 93 mg/dL (<150)
[2024-12-03 03:11] LABS: Syphilis Screen Nonreactive (Nonreactive)
[2024-12-03 03:43] LABS: HBS Num1 0.44 mIU/mL (0-7.99); HBc Num1 0.13 S/CO (0.00-0.79); HBsAGNum1 0.30 S/CO (0.00-0.99); HIV Num 1 0.05 S/CO (0.00-0.99); Hepatitis A Antibody IgM 0.13 Index (0-0.79); Hepatitis B Surface Antigen Negative (Negative); ~HepC Num1 0.10 S/CO (0.00-0.79); ~Hepatitis A Antibody IgM Nonreactive (Nonreactive); ~Hepatitis B Surface Antibody NONREACTIVE (Nonreactive); ~Hepatitis C Antibody Nonreactive (Nonreactive)
== END 2024-12-02 11:09 | disposition home or self-care (01) ==
LOC: HO.CHCLDS 11:08
PROVIDERS: PCP Internal Medicine; Visit Provider Family Medicine
DX: Z11.3 Encounter for screening for infections with a predominantly sexual mode of transmission (principal); Z11.4 Encounter for screening for human immunodeficiency virus [HIV]; E66.812 Obesity, class 2; E66.09 Other obesity due to excess calories; Z68.38 Body mass index [BMI] 38.0-38.9, adult; Z20.2 Contact with and (suspected) exposure to infections with a predominantly sexual mode of transmission
CPT/HCPCS: 36415; 80053; 80061; 81003; 84443; 85025; 86592; 86704; 86706; 86709; 86780; 86803; 87340; 87389